=== PATIENT | female | born 1945 | race Caucasian/White ===

== ENCOUNTER 2024-12-10 12:34 | Emergency (ER) | payer OTHER, SELFPAY ==
[2024-12-10 12:51] VITALS: BP 137/64; PULSE 66; RESP 14; TEMP 36.5; O2SAT 97; BMI 23.3
--- NOTE | 2024-12-10 16:13 | ED_ITS ---
<Statement entered by Sincere Ferguson MD - 01/01/25 07:32> I was personally available for consultation in the Department at the time the patient was seen HPI - Skin/Abscess/Foreign Bdy General Chief complaint: Skin/Abscess/Foreign Body Stated complaint: Lt shoulder lump on top of and red Time Seen by Provider: 12/10/24 16:12 Source: patient Mode of arrival: Ambulatory Limitations: no limitations History of Present Illness HPI narrative: 79-year-old female presents to the ED with a left shoulder wound that has become increasingly painful and red over the last week. Patient endorses that she has had a painless bump in that location for 6 months, last week it started becoming red, painful and swollen. No fever, chills, nausea, vomiting. Related Data Previous Rx's ?Medication ?Instructions ?Recorded cephalexin 500 mg capsule 500 mg PO QID 5 days #20 cap s 12/10/24 sulfamethoxazole 800 1 tab PO Q12H 5 days #10 tab s 12/10/24 mg-trimethoprim 160 mg tablet (Bactrim DS) Allergies Allergy/AdvReac Type Severity Reaction Status Date / Time codeine Allergy Anaphylaxis Verified 12/10/24 12:53 levofloxacin (From Levaquin) Allergy ITCHING Verified 12/10/24 12:53 prednisone AdvReac Agitated Verified 12/10/24 12:53 Review of Systems Constitutional Constitutional: Denies chills, Denies fatigue, Denies fever(s), Denies frequent falls, Denies lethargy and Denies weakness Eyes Eyes: Denies change in vision, Denies eye discharge, Denies irritation and Denies loss of vision ENT Ears, Nose, Mouth, and Throat: Denies change in voice, Denies dizziness, Denies neck pain, Denies sore throat and Denies throat swelling Cardiovascular Cardiovascular: Denies chest pain, Denies irregular heart rhythm, Denies lightheadedness, Denies palpitations, Denies dyspnea, Denies dyspnea on exertion and Denies orthopnea Respiratory Respiratory: Denies cough, Denies dyspnea, Denies dyspnea on exertion and Denies wheezing Gastrointestinal Gastrointestinal: Denies abdominal pain, Denies change in bowel habits, Denies diarrhea, Denies nausea and Denies vomiting Musculoskeletal Musculoskeletal: Denies neck pain and Denies numbness Integumentary/Breasts Skin/Breast: Denies pruritus, Denies erythema, Denies rash and Denies wounds Comments: Left shoulder wound that is raised, red and painful Neurologic Neurologic: Denies behavioral changes, Denies confusion, Denies dizziness, Denies frequent falls, Denies loss of vision, Denies numbness and Denies weakness Psychiatric Psychiatric: Denies anxiety, Denies behavioral changes, Denies confusion, Denies depression, Denies homicidal ideation and Denies suicidal ideation Endocrine Endocrine: Denies fatigue, Denies flushing and Denies palpitations Hematologic/Lymphatic Hematologic/Lymphatic: Denies easy bruising Allergic/Immunologic Allergic/Immunologic: Denies urticaria, Denies throat swelling and Denies wheezing Patient History Social History Smoking Status: Former smoker Smoking Status: Former smoker Exam Narrative Exam Narrative: Const General:?cooperative, healthy appearing and comfortable [facility] Head:?normal to inspection Ears:?hearing grossly normal bilaterally Nose:?external nose normal Face and sinus:?normal facial exam and sinuses nontender Mouth:?oral mucosae normal Throat:?posterior oropharynx normal Eyes General:?appearance normal, both eyes and all related structures Neck Neck:?normal visual inspection and no lymphadenopathy noted Resp Effort & Inspection:?normal respiratory effort Auscultation:?clear to auscultation bilaterally Cardio Rate:?regular rate Rhythm:?regular rhythm Integumentary There is a erythematous, warm to touch, painful bump on the left shoulder consistent with an abscess with overlying cellulitis. No streaking noted Neuro General:?patient alert, patient awake and patient oriented x3 Initial Vital Signs Initial Vital Signs: Vital Signs Temperature 97.7 F 12/10/24 12:51 Pulse Rate 66 12/10/24 12:51 Respiratory Rate 14 12/10/24 12:51 Blood Pressure 137/64 12/10/24 12:51 Pulse Oximetry 97 12/10/24 12:51 Oxygen Delivery Method Room Air 12/10/24 12:51 Procedures Abscess I/D I&D #1: Site: other (Left shoulder) Side (if applicable): left Local Anesthetic: lidocaine 2% Amount of anesthesia used (mL): 4 Technique: incised with #11 blade Amount of fluid expressed (mL): 2 Irrigation: No Packing used?: none Course Orders Ordered: ED Orders 12/10/24 18:01 Wound Culture and Gram Stain Stat Vital Signs Vital signs: Vital Signs - 8 hr 12/10/24 12:51 Temperature 97.7 F Pulse Rate 66 Respiratory Rate 14 Blood Pressure 137/64 Pulse Oximetry 97 Oxygen Delivery Method Room Air MDM - Skin/Abscess/Foreign Bdy MDM Narrative Medical decision making narrative: 79-year-old female presents to the ED with a left shoulder wound that has become increasingly painful and red over the last week. The wound is consistent with a abscess cellulitis. The lesion possibly started as a sebaceous cyst that subsequently got infected. The wound was incised and drained successfully. No packing since the lesion is quite small. Sample sent for culture. Patient prescribed antibiotics. Recommend follow-up with visiting professor if the lesion were to recur. ED return precautions were discussed with patient. Patient verbalized understanding. Medical records reviewed: Yes Discharge Plan Departure Patient Disposition: Home Clinical Impression: Abscess of skin or subcutaneous tissue Qualifiers: Site of cutaneous abscess: trunk Site of cutaneous abscess of trunk: unspecified site Qualified Code(s): L02.219 - Cutaneous abscess of trunk, unspecified Cellulitis Qualifiers: Site of cellulitis: trunk Site of cellulitis of trunk: unspecified site Qualified Code(s): L03.319 - Cellulitis of trunk, unspecified Instructions: DI for Cellulitis -- Adult, DI for Skin Abscess Activity Restrictions/Additional Instructions: Were evaluated in the ED today for a painful wound on your left shoulder. The wound is consistent with an abscess with overlying cellulitis/infection of the skin. The abscess was incised and drained and we have sent a sample for culture. The wound will continue to drain for the next day or so. You are being prescribed antibiotics for the cellulitis. Please take those as prescribed. Please follow-up with the visiting professor if your symptoms do not completely resolve over the next few days. Return to the ED if you have worsening symptoms in the meanwhile. Prescriptions: New sulfamethoxazole-trimethoprim [Bactrim DS] 800-160 mg tablet 1 tab PO Q12H 5 Days Qty: 10 0RF cephalexin 500 mg capsule 500 mg PO QID 5 Days Qty: 20 0RF Stand Alone Forms: Patient Portal/API
[2024-12-10 18:37] VITALS: BP 181/73; PULSE 56; RESP 18; O2SAT 100
== END 2024-12-10 18:15 | disposition home or self-care (01) ==
PROVIDERS: Emergency Provider Student in an Organized Health Care Education/Training Program
DX: L02.414 Cutaneous abscess of left upper limb (principal); L03.114 Cellulitis of left upper limb
CPT/HCPCS: 10060; 87070; 87075; 87205; 99281; 99283